=== PATIENT | female | born 1995 | race Caucasian/White ===

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

== ENCOUNTER 2017-05-31 13:00 | Emergency (ER) | payer MEDICAID ==
[2017-05-31] MEDS ORDERED: NS 0.9% 1000 ML* 1,000 ML BOLUS ONE (13:55)
[2017-05-31] MEDS ORDERED: Ondansetron INJ* 2 MG/ML VIAL IV ONE (13:55)
[2017-05-31] MEDS ORDERED: Ketorolac INJ* 30 MG/ML 1 ML VIAL IV PUSH ONE (13:55)
--- NOTE | 2017-05-31 13:56 | UC ---
HPI Febrile Illness - HPI Summary HPI Summary: Started getting high fever with L flank pain, nausea and vomiting 2 days ago. Denies cough or trouble breathing; had influenza about 3 weeks ago, had a cold about a week ago but it's gone. Has been prone to UTIs a lot in the past, had pyelonephritis at least once. Period is about 1.5 weeks late. - History of Current Complaint Chief Complaint: UCGeneralIllness Time Seen by Provider: 05/31/17 13:30 Hx Obtained From: Patient Hx Last Menstrual Period: 04/21/17 Onset/Duration: Started Days Ago Timing: Constant Initial Severity: Moderate Current Severity: Moderate Aggravating Factors: Nothing Alleviating Factors: OTC Medicine Associated Signs and Symptoms: Chills, Headache, Other: - L flank pain - Risk Factors Pseudomonas Risk Factors: Negative - Allergy/Home Medications Allergies/Adverse Reactions: Allergies Allergy/AdvReac Type Severity Reaction Status Date / Time Amoxicillin Allergy Shakes Verified 05/31/17 13:18 PMH/Surg Hx/FS Hx/Imm Hx Other GI/ History: frequent UTIs Other History Of: Negative For: Anticoagulant Therapy - Surgical History Surgical History: None - Family History Known Family History: Negative: Cardiac Disease, Blood Disorder - Social History Occupation: Employed Part-time Lives: With Family Alcohol Use: None Substance Use Type: None Substance Use Comment - Amount & Last Used: occasionally Smoking Status (MU): Never Smoked Tobacco - Immunization History Most Recent Influenza Vaccination: never Review of Systems Constitutional: Fever, Chills, Fatigue Skin: Negative Eyes: Negative ENT: Negative Respiratory: Negative Cardiovascular: Negative Gastrointestinal: Negative Genitourinary: Frequency Motor: Negative Neurovascular: Negative Musculoskeletal: Negative Neurological: Negative Psychological: Negative Is Patient Immunocompromised?: No All Other Systems Reviewed And Are Negative: Yes Physical Exam Triage Information Reviewed: Yes Appearance: Well-Nourished, Pain Distress - mild Vital Signs: Initial Vital Signs Temp 102.9 F 05/31/17 13:19 Pulse 117 05/31/17 13:19 Resp 18 05/31/17 13:19 BP 113/60 05/31/17 13:19 Pulse Ox 100 05/31/17 13:19 Vital Signs Reviewed: Yes Eye Exam: Normal Eyes: Positive: Conjunctiva Clear ENT Exam: Normal ENT: Positive: Normal ENT inspection, Hearing grossly normal, Pharynx normal, TMs normal. Negative: TM bulging, TM dull, TM red Dental Exam: Normal Neck exam: Normal Neck: Positive: Supple, Nontender, No Lymphadenopathy Respiratory Exam: Normal Respiratory: Positive: Chest non-tender, Lungs clear, Normal breath sounds, No respiratory distress Cardiovascular: Positive: No Murmur, Tachycardia Abdomen Description: Positive: Soft, CVA Tenderness (L) - Marked with percussion and deep breaths Neurological Exam: Normal Neurological: Positive: Alert Psychological Exam: Normal Skin Exam: Normal Re-Evaluation - Re-Evaluation First Eval Re-Evaluation Time: 14:42 Change: Improved - headache still there but improving, back pain improving. HR down to high 90s, now has 2-3/6 systolic murmur on exam. Course/Dx - Diagnoses Clinic Provider Diagnoses: L pyelonephritis. systolic heart murmur. headache Discharge - Discharge Plan Condition: Stable Disposition: HOME Referrals: Roula TRISTAN,Malena Ochoa [Primary Care Provider] -
[2017-05-31 15:01] VITALS: BP 100/47
--- NOTE | 2017-06-02 22:25 | UC ---
- Progress Note Progress Note: + E. Coli On cipro await sensitivity, no change Teresa 06/02/2017 Re-Evaluation - Re-Evaluation First Eval Re-Evaluation Time: 14:42 Change: Improved - headache still there but improving, back pain improving. HR down to high 90s, now has 2-3/6 systolic murmur on exam.
== END 2017-05-31 15:24 | disposition home or self-care (01) ==
LOC: UCEAST 13:00
DX: N12 Tubulo-interstitial nephritis, not specified as acute or chronic (principal); R01.1 Cardiac murmur, unspecified; R51 Headache
CPT/HCPCS: 81003; 81025; 87077; 87086; 87186; 96360; 99212; G0463; J1885; J2405